=== PATIENT | female | born 1995 | race Caucasian/White ===

== ENCOUNTER 2021-09-26 11:30 | Outpatient (CLI) | payer OTHER, SELFPAY ==
--- NOTE | ~2021-09-26 | XR_ITS ---
XR lumbar spine 2-3V DATE: 09/26/2021 11:59 INDICATION: Low back pain, left sciatica TECHNIQUE: AP, lateral, coned lateral lumbosacral views COMPARISON: None FINDINGS: Normal alignment of the lumbar spine. There is minimal dextroscoliosis of the lumbar spine. No fracture or bone destruction is evident. The included lower thoracic and lumbar pedicles are intac t. Lumbar and lumbosacral interspaces are well preserved. The sacroiliac joints appear normal. IMPRESSION: Minimal dextroscoliosis of the lumbar spine Reviewed, dictated and finalized at location B. BIN CONVEYOR TENDER
[2021-09-26 12:37] LABS: SPREG INTERNAL CONTROL Positive; Serum Qual hCG Negative
== END 2021-09-26 11:31 | disposition home or self-care (01) ==
PROVIDERS: PCP Family Medicine; Visit Provider Family Medicine
DX: M54.42 Lumbago with sciatica, left side (principal)
CPT/HCPCS: 36415; 72100; 84703

== ENCOUNTER 2021-10-05 12:45 | Outpatient (CLI) | payer OTHER, SELFPAY ==
--- NOTE | ~2021-10-05 | XR_ITS ---
XR scoliosis survey DATE: 10/05/2021 13:48 INDICATION: Lumbago, sciatica TECHNIQUE: Standing AP and lateral views of the spine. Breast munoz. COMPARISON: None FINDINGS: There is 4 degrees levoscoliosis measured from T1 to L3. No fracture or dislocation or bone destruction of the cervical, thoracic or lumbar spine. The right femoral head is 12 mm higher than the left femoral head. Acute lumbosacral angle. IMPRESSION: 4 degrees levoscoliosis from T1 to L3 Right femoral head 12 mm higher than left femoral head Acute lumbosacral angle Reviewed, dictated and finalized at [facility]. Reviewed, dictated and finalized at location A. EMS TEST ENGINEER
--- NOTE | ~2021-10-05 | US_ITS ---
EXAMINATION: US soft tissue lower back DATE: 10/05/2021 15:21 INDICATION: Benign neoplasm of connective tissue and other soft tissues. Lower back lump. TECHNIQUE: Multiple grayscale and Doppler ultrasound images of the lower back were obtained. COMPARISON: None FINDINGS: There is no abnormal mass in the patient's area of concern in left lower back. IMPRESSION: 1. No abnormal mass in the patient's area of concern in left lower back. Reviewed, dictated and finalized at location E. EMS APPLICATIONS PROGRAMMING LEAD
== END 2021-10-05 12:46 | disposition home or self-care (01) ==
LOC: ANHIMG 12:59
PROVIDERS: PCP Family Medicine; Visit Provider Family Medicine
DX: D21.6 Benign neoplasm of connective and other soft tissue of trunk, unspecified (principal); M54.42 Lumbago with sciatica, left side; M41.84 Other forms of scoliosis, thoracic region; M21.752 Unequal limb length (acquired), left femur
CPT/HCPCS: 72082; 76705

== ENCOUNTER 2022-03-23 15:41 | Outpatient (CLI) | payer OTHER, SELFPAY ==
[2022-03-26 13:16] LABS: NIL 0.02 IU/mL; Quantiferon TB Plus, 1T NEGATIVE (NEGATIVE); TB1-NIL 0.13 IU/mL; TB2-NIL 0.11 IU/mL
== END 2022-03-23 15:42 | disposition home or self-care (01) ==
LOC: CHSLAB 15:44
PROVIDERS: PCP Family Medicine; Visit Provider Family Medicine
DX: Z11.1 Encounter for screening for respiratory tuberculosis (principal)
CPT/HCPCS: 36415; 86480